=== PATIENT | female | born 1950 | race African-American/Black ===

== ENCOUNTER → 2017-02-03 | Outpatient (CLI) | payer MEDICARE ==
[2015-08-16 15:08] VITALS: BP 134/60
[~2017-02-03] MED LIST: ASCO500T2 PO; ASPI-482 PO; ASPI325T4 PO; ASPI81TA2 PO; CHOL400T2 PO; CRESTOR20 MG PO; Enoxaparin Sodium SQ; HYDR-2666 PO; INSU100C4 SQ; INSU100V13 SQ; LISI-334 PO; METF-620 PO; OMEG1CAP16 PO; OMEG1CAP6 PO; PREG75CA PO; TRAM50TA PO
--- NOTE | 2017-02-04 10:09 | RAD ---
DATE: 02/03/2017 EXAM: DIGITAL DIAGNOSTIC RT HISTORY: History of left breast cancer, left mastectomy COMPARISON: None available This study was interpreted with the benefit of Computerized Aided Detection (CAD ). FINDINGS: The breast parenchyma demonstrates scattered fibroglandular densities, category B. There are no dominant suspicious masses, suspicious microcalcifications or evidence of architectural distortion. A small probable intramammary lymph node identified in the right breast best seen on the MLO view in the mid breast. IMPRESSION: Benign findings BI-RADS CATEGORY: 2 BENIGN FINDING RECOMMENDED FOLLOW-UP: 12 months PQRS compliance statement: Patient information was entered into a reminder system with a target due date 02/03/2018 for the next mammogram. Mammography is a sensitive method for finding small breast cancers, but it does not detect them all and is not a substitute for careful clinical examination. A negative mammogram does not negate a clinically suspicious finding and should not result in delay in biopsying a clinically suspicious abnormality. "Our facility is accredited by the [employer] Mammography Program." JUSTINED
== END | disposition home or self-care (01) ==
LOC: MAMMO 08:15
PROVIDERS: ATTEND Internal Medicine
DX: Z85.3 Personal history of malignant neoplasm of breast (principal)
CPT/HCPCS: G0206; 77065

== ENCOUNTER 2018-03-02 12:04 | Outpatient (CLI) | payer MEDICARE | END 2018-03-23 | disposition home or self-care (01) | LOC: MAMMO 03-23 11:55 | DX: R92.8 Other abnormal and inconclusive findings on diagnostic imaging of breast (principal); I10 Essential (primary) hypertension; E11.9 Type 2 diabetes mellitus without complications; E78.5 Hyperlipidemia, unspecified; Z85.3 Personal history of malignant neoplasm of breast | CPT/HCPCS: 77065; G0279 ==

== ENCOUNTER → 2018-10-19 | Outpatient (CLI) | payer MEDICARE ==
[2015-08-16 15:08] VITALS: BP 134/60
[~2018-10-19] MED LIST changes: +ASPI-630 PO; -ASPI325T4 PO; +ASPI325T8 PO; -ASPI81TA2 PO; -HYDR-2666 PO; +HYDR-2761 PO; -METF-620 PO; +METF10007 PO; -OMEG1CAP16 PO; +OMEG1CAP27 PO
--- NOTE | 2018-10-19 15:13 | RAD ---
Ultrasound-guided right lobe thyroid biopsy 10/19/2018 Clinical indications: Right lobe thyroid nodule. COMPARISON: Ultrasound thyroid 03/24/2018 Findings/technique Procedure was discussed with the patient, including benefits and risks, which included but were not limited to bleeding, infection and damage to adjacent structures. Patient wished to proceed and signed written informed consent. Patient was placed supine on the imaging table. A timeout was performed according to the universal protocol. Preprocedural imaging demonstrated a dominant right lobe thyroid nodule. The overlying skin was marked, prepped and draped in the usual sterile fashion. A small amount of 1 percent lidocaine was used for local anesthesia. Under direct ultrasound guidance, 4 25-gauge FNA samples were obtained of the right lobe thyroid nodule and given to pathology and sent to the lab for analysis. All instrumentation was removed. Patient tolerated the procedure well left the department in stable condition. IMPRESSION: Technically successful ultrasound-guided FNA of dominant right lobe thyroid nodule. Pathology pending. Electronically signed by: Doe Johnson MD (10/19/2018 3:08 PM) [facility]
--- NOTE | 2018-10-23 15:09 | PATHOLOGY ---
Note [facility] Accession Number: [id number] TESTS RESULT FLAG UNITS REF RANGE LAB Clinician Provided Cytology Information No. of containers..01 Other (Miscellaneous) Source: RT THYROID DIAGNOSIS: RT THYROID INCONCLUSIVE. FOLLICULAR LESION OF UNDETERMINED SIGNIFICANCE. THIS INTERPRETATION INCLUDES EVALUATION OF A CELL BLOCK. COMMENT: THERE ARE ABUNDANT FOLLICULAR CELLS WITH SOME HURTHLE CELL CHANGES AND MILD ATYPIA, MACROPHAGES, AND SCANT COLLOID.THE FINDINGS COULD BE INDICATIVE OF AN ADENOMATOUS NODULE. A FOLLICULAR NEOPLASM CANNOT BE EXCLUDED.THE CASE IS ALSO EXAMINED BY DR. GONSALEZ, CYTOPATHOLOGIST, WHO CONCURS WITH THE DIAGNOSIS. Pathologist ICD10: 02 R89.6 Signed out by: Randolph Vergara MD, Pathologist NPI- [id number] Performed by: Casey Brumfield, Senior Pensions Administrator ([facility]) Gross description: 01 30ML, RED, CLOUDY /LCS FLAG LEGEND: L-Low Normal,H-High Normal,LL-Alert Low,HH-Alert High <-Panic Low,>-Panic High,A-Abnormal,AA-Critical Abnormal Performed at: [facility] [address] [place] [address] Cali Claros MD, 02 [facility] [address] [place] [address] Randolph Vergara MD, Specimen Comment: A courtesy copy of this report has been sent to Specimen Comment: [phone]. Specimen Comment: Report sent to Performed at: [address], [place], [place] [id number] MD Cali Claros MD Phone: [phone]
== END | disposition home or self-care (01) ==
LOC: US 09:37
PROVIDERS: ATTEND Specialist
DX: E04.1 Nontoxic single thyroid nodule (principal); I10 Essential (primary) hypertension; Z79.01 Long term (current) use of anticoagulants; Z98.890 Other specified postprocedural states; E11.9 Type 2 diabetes mellitus without complications; Z90.12 Acquired absence of left breast and nipple; Z79.84 Long term (current) use of oral hypoglycemic drugs; Z79.899 Other long term (current) drug therapy
CPT/HCPCS: 10005; 31625; 60300; 76942

== ENCOUNTER → 2019-06-07 | Outpatient (CLI) | payer MEDICARE ==
[2015-08-16 15:08] VITALS: BP 134/60
--- NOTE | 2019-06-07 10:41 | RAD ---
DATE: 06/07/2019 10:00 AM EXAM: MAMMO ROBERT DIAG RT HISTORY: routine diagnostic evaluation. COMPARISON: Prior mammographic imaging 03/23/2018, 12/15/2014, 11/17/2014 Right CC and MLO views of the breasts were performed. Bilateral breast tomosynthesis was performed in CC and MLO projections. This study was interpreted with the benefit of Computerized Aided Detection (CAD). FINDINGS: Breast Density: FATTY The Breast Parenchyma is primarily fatty replaced. Breast parenchyma level density A. No suspicious masses, microcalcifications or architectural distortion is present to suggest malignancy in the right breast. The visualized axillae are unremarkable. IMPRESSION: No mammographic evidence of malignancy. BI-RADS CATEGORY: 1 NEGATIVE RECOMMENDED FOLLOW-UP: 12M 12 MONTH FOLLOW-UP Annual screening mammography is recommended, unless clinically indicated sooner based on symptoms or change in physical exam. PQRS compliance statement: Patient information was entered into a reminder system with a target due date for the next mammogram. Mammography is a sensitive method for finding small breast cancers, but it does not detect them all and is not a substitute for careful clinical examination. A negative mammogram does not negate a clinically suspicious finding and should not result in delay in biopsying a clinically suspicious abnormality. "Our facility is accredited by the [employer] Mammography Program."
== END | disposition home or self-care (01) ==
LOC: MAMMO 07:40
PROVIDERS: ATTEND Internal Medicine Hematology & Oncology
DX: D05.12 Intraductal carcinoma in situ of left breast (principal); Z90.12 Acquired absence of left breast and nipple
CPT/HCPCS: 77065; G0279; 77061

== ENCOUNTER → 2020-08-07 | Outpatient (CLI) | payer MEDICARE ==
[2015-08-16 15:08] VITALS: BP 134/60
[~2020-08-07] MED LIST changes: -ASCO500T2 PO; +ASCO500T4 PO; +PREG-9 PO; -PREG75CA PO
[2020-08-07 09:48] LABS: ALBUMIN 3.2 g/dL (3.4-5.0); ALBUMIN/GLOBULIN RATIO 0.7 (1.0-1.7); CALCIUM 9.1 mg/dL (8.5-10.1); GFR 66.7; POTASSIUM 3.9 mmol/L (3.5-5.1); TOTAL BILIRUBIN 0.3 mg/dL (0.2-1.0); TOTAL PROTEIN 7.7 g/dL (6.4-8.2)
[2020-08-07 09:55] LABS: CHOLESTEROL/HDL RATIO 2.4
--- NOTE | 2020-08-07 11:18 | RAD ---
DATE: 08/07/2020 8:40 AM EXAM: MAMMO ROBERT SCREEN RT HISTORY: Screening. Personal history left mastectomy 2014 COMPARISON: 06/07/2019, 03/23/2018 CC and MLO views of the right breast were performed. Breast tomosynthesis was performed in CC and MLO projections. This study was interpreted with the benefit of Computerized Aided Detection (CAD). FINDINGS: Breast Density: FATTY The Breast Parenchyma is primarily fatty replaced. Breast parenchyma level density A. No suspicious masses, microcalcifications or architectural distortion is present to suggest malignancy. IMPRESSION: No mammographic evidence of malignancy. BI-RADS CATEGORY: 1 NEGATIVE RECOMMENDED FOLLOW-UP: 12M 12 MONTH FOLLOW-UP Annual screening mammography is recommended, unless clinically indicated sooner based on symptoms or change in physical exam. PQRS compliance statement: Patient information was entered into a reminder system with a target due date for the next mammogram. Mammography is a sensitive method for finding small breast cancers, but it does not detect them all and is not a substitute for careful clinical examination. A negative mammogram does not negate a clinically suspicious finding and should not result in delay in biopsying a clinically suspicious abnormality. "Our facility is accredited by the [employer] Mammography Program."
[2020-08-08 03:09] LABS: HEMOGLOBIN A1C 13.8 % (4.8-5.6)
== END ==
LOC: MAMMO 08:28
PROVIDERS: ATTEND Internal Medicine
DX: Z12.31 Encounter for screening mammogram for malignant neoplasm of breast (principal); E11.9 Type 2 diabetes mellitus without complications; E28.0 Estrogen excess; Z90.12 Acquired absence of left breast and nipple
CPT/HCPCS: 36415; 77061; 77063; 77067; 80053; 80061; 83036; 84443

== ENCOUNTER 2020-11-06 12:44 | Emergency (ER) | payer MEDICARE ==
[~2020-11-06] VITALS: Ht 165.1 cm; Wt 77.2 kg
[~2020-11-06 12:44] MED LIST changes: -LISI-334 PO; +LISI20TA18 PO
[2020-11-06 13:00] VITALS: BP 137/65
--- NOTE | 2020-11-06 13:33 | PHYS DOC ---
Past Medical History Past Medical History: Anemia, Cancer, Diabetes-Type II, DVT, High Cholesterol, Hypertension Additional Past Medical Histor: BREAST CANCER Past Surgical History: Other Additional Past Surgical Histo: LEFT SIDE MASECTOMY Smoking Status: Never Smoker Alcohol Use: Occasionally Drug Use: None General Adult EDM: Chief Complaint: LOWER EXTREMITY SWELLING HPI: HPI: Patient is a 70-year-old female who presents to the emergency department with right lower extremity swelling. She states that the swelling began 3 days ago. She has a prior history of 2 DVTs and is not currently on any anticoagulation. She denies any pain in the leg. She denies any recent surgeries or long distance travel. She has a personal history of thyroid and breast cancer. She denies any chest pain, shortness of breath, fever or chills. Review of Systems: Review of Systems: Constitutional: Denies fever or chills Eyes: Denies redness or eye pain HENT: Denies nasal congestion or sore throat Respiratory: Denies cough or shortness of breath Cardiovascular: Denies chest pain or palpitations GI: Denies abdominal pain, nausea, or vomiting : Denies dysuria or hematuria Musculoskeletal: Admits right lower extremity swelling. Denies back pain or joint pain Integument: Denies rash or skin lesions Neurologic: Denies headache, focal weakness or sensory changes Complete systems were reviewed and found to be within normal limits, except as documented in this note. Allergies: Allergies: Allergies Coded Allergies Type Severity Reaction Last Updated Verified No Known Drug Allergies 01/05/15 No Physical Exam: PE: Constitutional: Well developed, well nourished, no acute distress, non-toxic appearance HENT: Normocephalic, atraumatic Eyes: PERRL, EOMI, conjunctiva normal, no discharge Neck: Normal range of motion, no tenderness, supple Lungs & Thorax: No respiratory distress, equal chest rise and fall Abdomen: Soft, no tenderness Skin: Warm, dry, no erythema, no rash Back: No tenderness, no CVA tenderness Extremities: +1 pitting edema of right lower extremity from foot to mid thigh. Tenderness to palpation along deep venous system, ROM intact, Neurologic: Alert and oriented X 3, normal motor function, normal sensory function, no focal deficits noted Psychologic: Affect normal, judgment normal EKG: EKG: [] Radiology/Procedures: Radiology/Procedures: [] Course & Med Decision Making: Course & Med Decision Making Patient is a 70-year-old female with a history of DVT who presents with right lower extremity swelling. Ultrasound of right lower extremity revealed DVT from. Patient discussed with her PCP Dr. Willett and will restart her Eliquis with close follow up Pertinent Labs and Imaging studies reviewed. (See chart for details) Patient stable for discharge with outpatient follow-up with PCP. Discussed findings and plan with patient, who acknowledges understanding and agreement. Dragon Disclaimer: Dragon Disclaimer: This electronic medical record was generated, in whole or in part, using a voice recognition dictation system. Departure Departure Impression: Primary Impression: DVT (deep venous thrombosis) Qualified Codes: I82.4Y1 - Acute embolism and thrombosis of unspecified deep veins of right proximal lower extremity Disposition: 01 DC HOME SELF CARE/HOMELESS Condition: STABLE Referrals: ALEJANDRO ALY MD (PCP) Patient Instructions: Deep Vein Thrombosis Scripts Apixaban (ELIQUIS) 5 Mg Tablet 10 MG PO BID, #42 TAB After 7 days then change to 5mg PO BID. Please contact your PCP regarding need for continuation of prescription. Prov: TAMIKA JAMESON DO 11/06/20 TAMIKA JAMESON DO Nov 06, 2020 13:33
--- NOTE | 2020-11-06 13:40 | RAD ---
EXAM: Right lower extremity venous Doppler. HISTORY: Right lower extremity pain/swelling. COMPARISON: None. FINDINGS: Grayscale and Doppler analysis of the right lower extremity deep venous systems was perform ed with graded compression and augmentation. The common femoral, greater saphenous, superficial femor al, popliteal and calf veins were assessed. Partially occlusive thrombus is identified in the common femoral and popliteal veins and occlusive th rombus is identified in the proximal and mid femoral vein. The distal femoral vein is not well seen. IMPRESSION: 1. Extensive DVT in the right lower extremity deep veins, occlusive in the proximal and mid femoral v ein. FOR INTERNAL CODING PURPOSES Critical result: Findings discussed with Dr. Jorge Solorio at 11/06/2020 1:37 PM. RESULT CODE: (C) Electronically signed by: Odilon Macias MD (11/06/2020 1:37 PM) [id number]
[2020-11-06] MEDS ORDERED: APIX5TAB PO (13:59)
[2020-11-06] MEDS ORDERED: APIXABAN 5 MG TABLET. PO ONE (14:00)
== END 2020-11-06 14:15 | disposition home or self-care (01) ==
LOC: ER 12:44
DX: I82.4Y1 Acute embolism and thrombosis of unspecified deep veins of right proximal lower extremity (principal); E11.9 Type 2 diabetes mellitus without complications; E78.00 Pure hypercholesterolemia, unspecified; I10 Essential (primary) hypertension
CPT/HCPCS: 93971; 99284-25

== ENCOUNTER → 2021-11-07 | Outpatient (CLI) | payer MEDICARE ==
[~2021-11-07] MED LIST changes: +APIX5TAB PO
--- NOTE | 2021-11-07 13:33 | KCIC ---
Right breast digital screening mammograms with 3-D tomosynthesis: Reason for examination: Routine screening. History of left breast cancer with mastectomy. Comparison is made to previous studies dated back to 12/15/2014. Right breast mammograms in CC and oblique projections were obtained with 2-D imaging and 3-D tomosynt hesis imaging on a Supersolid Inspiration unit and reviewed on the workstation. Interpretation was made w ith the benefit of CAD. The skin and nipple show no abnormalities. No abnormal axillary lymph nodes are seen. The breast pare nchyma is predominantly fatty. (Breast density: Category A.) There continue to be small circumscribed nodules laterally in the right breast seen best on CC view which are stable. There are no new domina nt masses, suspicious calcifications or architectural distortion. Impression: No evidence of malignancy. Recommend routine screening. BI-RAD Category 2: Benign. "Our facility is accredited by the [employer] Mammography Program." This patient's information has been entered into a reminder system for the patient to be notified wit h the results of her examination and a target date for the next mammogram. Electronically signed by: Chelsea Montenegro MD (11/07/2021 1:30 PM) [id number]
--- NOTE | 2021-11-07 13:59 | KCIC ---
EXAM: DUAL ENERGY X-RAY ABSORPTIOMETRY (DEXA). HISTORY: Postmenopausal screening. FINDINGS: The lowest measured T-score is 0.8 in the left hip, based on a bone mineral density of 1.04 5 g/cm^2. Refer to the worksheets for full detail. No comparison examinations are available. IMPRESSION: 1. Normal. Bone mineral density yields a T-score of -1.0 or greater. Fracture risk is low. 2. FRAX report: Not calculated. METHODOLOGY: Dual energy x-ray absorptiometry was performed to measure bone mineral density. The foll owing analysis is based on the 2019 Official Positions of the International Society for Clinical Dens itometry: Measurements of the hips and the average of L1-L4 are preferred. When the spine and/or hip cannot be feasibly measured or interpreted, or in the setting of hyperparathyroidism, distal radial bone minera l density may be measured. The lumbar spine T-score is based on the average bone mineral density of L1-L4. In the setting of art ifact or anatomic abnormality, some lumbar levels may be excluded, and the remaining levels used for calculation. A single lumbar level is not used for diagnosis, and if only a single level is available for assessment, another anatomic site will be used to assign a diagnosis. The hip T-score is based on the bone mineral density measurement of the femoral neck or total proxima l femur of either side, whichever is lowest. Bilateral mean values are not used for diagnosis. The forearm T-score is derived from 33% of the distal radius of the nondominant forearm. Electronically signed by: Jasmyne Byrnes MD (11/07/2021 1:57 PM) [id number]
== END ==
LOC: KCIC MAMMO 12:28
PROVIDERS: ATTEND Internal Medicine
DX: Z12.31 Encounter for screening mammogram for malignant neoplasm of breast (principal); Z13.820 Encounter for screening for osteoporosis; Z78.0 Asymptomatic menopausal state; Z85.3 Personal history of malignant neoplasm of breast
CPT/HCPCS: 77063; 77067; 77080